=== PATIENT | female | born 1945 | race Caucasian/White ===

== ENCOUNTER → 2016-06-21 | Outpatient (CLI) | payer MEDICARE ==
[2016-06-21 13:17] LABS: ASPARTATE AMINO TRANSFERASE 19 U/L (15-37)
== END | disposition home or self-care (01) ==
LOC: CFH 08:25
PROVIDERS: ATTEND Internal Medicine
DX: E78.5 Hyperlipidemia, unspecified (principal)
CPT/HCPCS: 36415; 80061; 80076

== ENCOUNTER → 2016-10-17 | Outpatient (CLI) | payer MEDICARE | END | disposition home or self-care (01) | LOC: CFH 08:41 | PROVIDERS: ATTEND Registered Nurse | DX: E78.5 Hyperlipidemia, unspecified (principal); R53.83 Other fatigue | CPT/HCPCS: 36415; 80061; 84436; 84443; 84481 ==

== ENCOUNTER → 2017-05-08 | Outpatient (CLI) | payer MEDICARE ==
[2017-05-08 13:09] LABS: CHOL/HDL RATIO 6.1; LDL/HDL RATIO 3.5 (0.5-3.0)
== END | disposition home or self-care (01) ==
LOC: CFH 10:21
PROVIDERS: ATTEND Internal Medicine
DX: E78.5 Hyperlipidemia, unspecified (principal)
CPT/HCPCS: 36415; 80061